=== PATIENT | female | born 1975 | race Caucasian/White ===

== ENCOUNTER → 2020-01-02 | Outpatient (CLI) | payer BC ==
[2020-01-02 09:47] VITALS: BP 145/89; PULSE 85; RESP 18; TEMP 98
--- NOTE | 2020-01-02 11:01 | P.HPOB ---
History of Present Illness H&P Date: 01/02/20 Chief Complaint: The patient is here for her routine gynecologic exam. This is a 44-year-old with an LMP of 1999. The patient is here to establish with this office. It has been about 10 years since her last pelvic exam. She has been amenorrheic since 1999 and used Depo-Provera injections for control from [id number]. She then had a Mirena IUD placed in 2009 and has been amenorrheic with this. She understands that the Mirena IUD is approved for 5 years use and it may not be fully effective. She denies any significant hot flashes. She states her is planning on getting a vasectomy. She states she has some monthly menstrual type cramps and monthly breast tenderness but does not have any vaginal bleeding. She states she and her felt a breast lump in the right breast a few months ago. She thinks it has gotten slightly smaller. Review of Systems The patient's weight has been stable over the last year. She states her weight can fluctuate by plus or minus 5 pounds. She denies respiratory, cardiac, or G.I. problems. Past Medical History Additional Past Medical History / Comment(s): Seasonal ALLERGIES and sinus problems. 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 Mirena IUD was placed in 2009. History of Any Multi-Drug Resistant Organisms: None Reported Past Surgical History: No Surgical Hx Reported Past Psychological History: No Psychological Hx Reported Smoking Status: Current every day smoker (Half pack of cigarettes per day.) Past Alcohol Use History: Occasional (6 per week.) Past Drug Use History: None Reported Additional History: She has been since 1999. 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 - Past Family History Son(s) Additional Family Medical History / Comment(s): Hypoplastic left heart syndrome and at age 2. Father Family Medical History: Hyperlipidemia, Hypertension Mother Family Medical History: Hyperlipidemia, Hypertension Sister(s) Family Medical History: Cancer Additional Family Medical History / Comment(s): Thyroid cancer. Medications and Allergies Home Medications Medication Instructions Recorded Confirmed Type Cholecalciferol [Vitamin D3 (25 1,000 unit PO DAILY 01/02/20 01/02/20 History Mcg = 1000 Iu)] Cider Vinegar [Apple Cider Vinegar] 300 mg PO DAILY 01/02/20 01/02/20 History Fexofenadine/Pseudoephedrine 1 each PO BID 01/02/20 01/02/20 History [Maura-D 12 Hour Tablet] Glucos Sul 2Kcl/MSM/Chond/C/Mn 1 each PO DAILY 01/02/20 01/02/20 History [Glucosamine Chondroitin Cap] Multivitamin [Multivitamins Adult 1 each PO DAILY 01/02/20 01/02/20 History Gummies] Ubidecarenone [Co Q-10] 100 mg PO DAILY 01/02/20 01/02/20 History Allergies Allergy/AdvReac Type Severity Reaction Status Date / Time NARCOTICS AdvReac Unknown Uncoded 01/02/20 09:47 Exam Vital Signs Temp Pulse Resp BP Pulse Ox 01/02/20 09:41 98.0 F 85 18 145/89 97 Intake and Output 01/01/20 01/02/20 01/02/20 22:59 06:59 14:59 Other: Weight 73.482 kg Height 5 feet 6 inches, weight 162 pounds, BMI 26.1. This is a well-developed well-nourished white female who is alert and oriented times 3 in no acute distress. HEENT: Within normal limits. NECK: Supple without mass or thyromegaly. CHEST AND LUNGS: Clear to auscultation. HEART: Regular rate and rhythm. BREASTS: There is a palpable right breast mass at the 10 o'clock position measuring 2 x 2 centimeters. There are no other palpable breast masses. There is no nipple discharge. The breasts are nontender. There are no skin abnormalities noted on the breasts. AXILLARY EXAM: Negative for adenopathy. BACK: Negative for CVA tenderness. ABDOMEN: Soft, nontender, without palpable masses. PELVIC EXAM: Normal external genitalia. Cervix and vagina appear normal. No IUD is visible from the external os. A simple probing of the cervix with a small Q- tip did not reveal any string. There is no unusual discharge. There is no evidence of prolapse. There is no cervical motion tenderness. The uterus is midposition, nongravid size and nontender. There are no palpable adnexal masses or tenderness. RECTAL EXAM: negative for mass or tenderness and is negative for occult blood. EXTREMITIES: Nontender. IMPRESSION: 1. 44-year-old female with palpable right breast mass which she has noted for about 3 months. Mass measures pressure 2 x 2 centimeters at the 10 o'clock position. 2. History of Mirena IUD placement in 2009 with associated amenorrhea. The IUD string is not visible at this time. She states the string was shortened for some reason shortly after was placed. Differential diagnosis will include IUD expulsion, string within the cervical canal, and displaced IUD. PLAN: 1. Pap smear was performed. 2. Self breast awareness was discussed with the patient. 3. Diagnostic right mammogram was recommended and the order slip was given to the patient for this. I have offered try to have this done today, but she states she would like to discuss this with her insurance company to see what her insurance covers. I have stressed the importance of having a workup on the right breast mass and she states she will have this done, but does not want to be surprised by [id number] cost. 4. I have recommended that she use a backup method for control immediately such as condoms. She understands that even if the IUD is in the proper placement, it is not fully effective since it has been more than 5 years since the Mirena IUD was placed. I have recommended that the IUD either be replaced or alternate method be used. She states her is planning to get a vasectomy in the near future and would like to wait until this is done and found to be effective before the IUD is removed. When she does want it removed, we can and further probing of the cervix or use a pelvic ultrasound to confirm location of the IUD. If unable to access the string, consider referral for hysteroscopic removal of the IUD. She is declining any of this for removal until her has had a vasectomy. 5. Names of local urologists were given to the patient for vasectomy. [employer]G FAQ handout on male and female sterilization was given to the patient. 6. She was advised to return in one year for her annual well woman exam and as needed.
--- NOTE | 2020-01-16 10:16 | P.PN ---
Progress Note - Text Progress Note Date: 01/16/20 OUTPATIENT FOLLOW-UP NOTE TEST(S)/RESULTS: Test results from 01/02/2020 include negative Pap smear. Mammogram done on 01/03/2020 required bilateral breast ultrasounds. Bilateral breast cysts were noted including a 2.4 cm cyst which was palpable on her exam. These were felt to be probably benign and a 6 month bilateral breast ultrasound was recommended. METHOD OF NOTIFICATION: The patient was notified by phone. PATIENT COMMENTS: The patient states her is planning on getting a vasec arnie after the national crisis (COVID-19). DIAGNOSIS: Negative Pap smear and probably benign diagnostic mammogram. DISCUSSION: I have recommended that she use condoms until her has had a vasectomy and it has been found to be effective. PLAN: Bilateral breast ultrasound in 6 months. The order slip will be sent in the mail. She was advised to return in one year for her annual well woman exam.
== END ==
LOC: WWCWWP 09:32
PROVIDERS: ATTEND Obstetrics & Gynecology
DX: Z53.9 Procedure and treatment not carried out, unspecified reason (principal)

== ENCOUNTER → 2020-01-03 | Outpatient (CLI) | payer BC ==
--- NOTE | 2020-01-03 15:03 | MM ---
Reason for exam: clinical finding. History: Family history of breast cancer in paternal aunt at age 60. Taking hormonal contraceptives beginning at age 18. Indicated problem(s): lump or thickening in the right breast. Physical Findings: Nurse Summary: 2cm nodule in the right breast at 11 o'clock (nurse mj). MG 3D Diag Mammo W/Cad CUONG Bilateral CC and MLO view(s) were taken. The breast tissue is heterogeneously dense. This may lower the sensitivity of mammography. There are numerous round oval circumscribed bilateral masses, ultrasound will be performed as a baseline exam. These results were verbally communicated with the patient and result sheet given to the patient on 01/03/20. ASSESSMENT: Incomplete: need additional imaging evaluation, BI-RAD 0 RECOMMENDATION: Ultrasound of both breasts.
--- NOTE | 2020-01-03 15:06 | USB ---
Reason for exam: additional evaluation requested from abnormal screening. History: Family history of breast cancer in paternal aunt at age 60. Taking hormonal contraceptives beginning at age 18. US Breast BILAT Right complete breast ultrasound includes all four quadrants, the retroareolar region and axilla. Finding demonstrates a 0.5 x 0.4 x 0.7cm cystic cluster at 3 o'clock, 6 month follow up recommended and a 2.4 x 2.0 x 2.2cm cystic, palpable, benign lesion at 11 o'clock. Left complete breast ultrasound includes all four quadrants, the retroareolar region and axilla. Finding demonstrates a 1.1 x 1.4 x 0.8cm mixed lesion at 2 o'clock, complicated cyst with enhancement, 6 month follow up recommended and a 1.1 x 0.9 x 1.2cm mixed lesion at 4 o'clock, complicated cyst. These results were verbally communicated with the patient and result sheet given to the patient on 01/03/20. ASSESSMENT: Probably benign, BI-RAD 3 RECOMMENDATION: Ultrasound of both breasts in 6 months.
== END | disposition home or self-care (01) ==
LOC: RADMAMWWP 12:42
PROVIDERS: ATTEND Obstetrics & Gynecology
DX: R92.8 Other abnormal and inconclusive findings on diagnostic imaging of breast (principal); N63.11 Unspecified lump in the right breast, upper outer quadrant
CPT/HCPCS: 77062; 77066